=== PATIENT | female | born 1960 | race Caucasian/White ===

== ENCOUNTER 2017-07-23 07:56 | Inpatient (IN) | payer OTHER ==
[2017-07-23] VITALS (7 sets, daily range): BP systolic 97–142; BP diastolic 46–85
[~2017-07-23] VITALS: Ht 162.6 cm; Wt 95.3 kg
[~2017-07-23 07:56] MED LIST: ALLERGY RELIEF10 MG PO; ASPIR 8181 MG PO; ATIVAN1 MG PO; BENTYL 20 MG TA20 M1 PO; BUSPIRONE HCL10 MG PO; CLONAZEPAM; FLEXERIL PO; GLUCOPHAGE XR500 MG PO; HYDROXYZINE HCL25 M1 PO; LEVAQUIN 500 M500 M1 PO; LEVOTHROID; LISINOPRIL5 MG PO; MIGRANOW KIT50 MG PO; NAPROSYN500 MG PO; NEURONTIN 300300 M1 PO; NORCO 10-325 T1 EACH PO; OMEPRAZOLE40 MG PO; ONGLYZA5 MG PO; PERCOCET 5-3251 EACH PO; PRISTIQ50 MG PO; SUDAFED 12 HOU120 MG PO; SYNTHROID150 MCG PO; TESSALON PERLE100 M1 PO; VERAPAMIL ER180 M1 PO; WELLBUTRIN SR150 MG PO
[2017-07-23] MEDS ORDERED: OCUFLOX5 ML OPHTHALMIC (08:05)
[2017-07-23] MEDS ORDERED: ALBUTEROL2.5 MG/0.5 INH (08:05)
[2017-07-23 08:36] LABS: HEMATOCRIT 33.4 % (37.0-47.0); HEMOGLOBIN 10.9 gm/dL (12.0-15.0); MCH 26.7 pg (26.0-34.0); MCHC 32.7 g/dL (28.0-37.0); MCV 81.5 fL (80.0-100.0); MPV 9.3 fl. (7.2-11.1); NUCLEATED RBCS 0 /100WBC; PLATELET COUNT* 390 thou/uL (150-400); RBC 4.09 mil/uL (4.20-5.00); RDW-CV 16.6 % (10.5-14.5); WBC 22.3 thou/uL (4.0-11.0)
[2017-07-23 08:45] LABS: ANION GAP 9 mmol/L (7-16); BUN 25 mg/dL (7-18); CALCIUM 8.5 mg/dL (8.5-10.1); CHLORIDE 98 mmol/L (98-107); CO2 26 mmol/L (21-32); CREATININE 2.4 mg/dL (0.6-1.3); GLUCOSE 127 mg/dL (70-99); POTASSIUM 4.8 mmol/L (3.5-5.1); SODIUM 133 mmol/L (136-145)
[2017-07-23 08:53] LABS: ALBUMIN 3.2 g/dL (3.4-5.0); ALKALINE PHOSPHATASE 60 U/L (46-116); LIPASE 177 U/L (73-393); SGOT 17 U/L (15-37); SGPT 18 U/L (30-65); TOTAL BILIRUBIN 0.5 mg/dL (<0.1-1.0); TOTAL PROTEIN 6.9 g/dL (6.4-8.2); TROPONIN-I LEVEL <0.06 ng/mL (<0.06)
[2017-07-23 09:17] LABS: ABSOLUTE LYMPHOCYTES 3.1 thou/uL (0.8-5.3); ABSOLUTE MONOCYTES 0.7 thou/uL (0.0-1.2); ABSOLUTE NEUTROPHILS 18.5 thou/uL (1.6-8.1); PLATELET ESTIMATE ADEQUATE
[2017-07-23 09:38] LABS: INFLUENZA A ANTIGEN None Detected (None Detect); INFLUENZA B ANTIGEN None Detected (None Detect)
[2017-07-23 09:47] LABS: URINE BILIRUBIN NEGATIVE (Negative); URINE BLOOD TRACE (Negative); URINE CLARITY CLEAR; URINE COLOR YELLOW; URINE GLUCOSE-RANDOM NEGATIVE (Negative); URINE KETONES NEGATIVE (Negative); URINE LEUKOCYTES-REFLEX NEGATIVE (Negative); URINE NITRITE-REFLEX NEGATIVE (Negative); URINE PROTEIN NEGATIVE (Negative); URINE SPECIFIC GRAVITY <= 1.005 (1.005-1.030); URINE UROBILINOGEN 0.2 E.U./dl (0.2-1.0)
[2017-07-23 14:31] LABS: CREATININE 2.3 mg/dL (0.6-1.3); MAGNESIUM 1.6 mg/dL (1.8-2.4)
--- NOTE | 2017-07-23 16:00 | EKG ---
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 : 1960 Requested By: Mj Baez Order Number: [id number] MD: Mason Johnson Measurements Intervals [place] Rate: 121 P: 47 WA: 130 QRS: -20 QRSD: 77 T: 51 QT: 321 QTc: 456 Interpretive Statements Sinus tachycardia Borderline left axis deviation Compared to ECG 05/01/2017 16:02:13 Sinus rhythm no longer present Electronically Signed On 07-23-2017 16:00:00 EATING DISORDER PSYCHOLOGIST by Mason Johnson [email or web address] <ELECTRONICALLY SIGNED> By: Mason Johnson MD, [facility] 07/23/17 [facility] 4 4 Mason Johnson MD, [facility] /EPI
[2017-07-24] VITALS (9 sets, daily range): BP systolic 67–103; BP diastolic 34–58
[2017-07-24 05:33] LABS: ABSOLUTE BASOPHILS 0.1 thou/uL (0.0-0.2); ABSOLUTE EOSINOPHILS 0.4 thou/uL (0.0-0.7); ABSOLUTE LYMPHOCYTES 1.5 thou/uL (0.8-5.3); ABSOLUTE MONOCYTES 1.1 thou/uL (0.0-1.2); ABSOLUTE NEUTROPHILS 8.9 thou/uL (1.6-8.1); BASOPHILS 0.6 %; HEMATOCRIT 25.6 % (37.0-47.0); LYMPHOCYTES 12.5 %; MCH 26.9 pg (26.0-34.0); MCV 83.9 fL (80.0-100.0); MONOCYTES 9.3 %; MPV 9.5 fl. (7.2-11.1); NUCLEATED RBCS 0 /100WBC; POLYS 74.6 %; RBC 3.05 mil/uL (4.20-5.00); RDW-CV 16.5 % (10.5-14.5); WBC 11.9 thou/uL (4.0-11.0)
[2017-07-24 05:56] LABS: HEMOGLOBIN 8.2 gm/dL (12.0-15.0); PLATELET COUNT* 269 thou/uL (150-400)
[2017-07-24 07:19] LABS: ALBUMIN 2.2 g/dL (3.4-5.0); CALCIUM 7.3 mg/dL (8.5-10.1); CREATININE 2.6 mg/dL (0.6-1.3); TOTAL BILIRUBIN 0.2 mg/dL (<0.1-1.0); TOTAL PROTEIN 5.2 g/dL (6.4-8.2)
[2017-07-24 07:20] LABS: POTASSIUM 5.4 mmol/L (3.5-5.1)
[2017-07-25] VITALS: BP 111/60
[2017-07-25 04:04] VITALS: BP 130/79
[2017-07-25 05:32] LABS: HEMATOCRIT 26.8 % (37.0-47.0); HEMOGLOBIN 8.4 gm/dL (12.0-15.0); MCH 26.6 pg (26.0-34.0); MCHC 31.4 g/dL (28.0-37.0); MCV 84.7 fL (80.0-100.0); MPV 9.8 fl. (7.2-11.1); NUCLEATED RBCS 0 /100WBC; PLATELET COUNT* 297 thou/uL (150-400); RBC 3.16 mil/uL (4.20-5.00); RDW-CV 17.2 % (10.5-14.5); WBC 16.7 thou/uL (4.0-11.0)
[2017-07-25 05:53] LABS: ALBUMIN 2.6 g/dL (3.4-5.0); CALCIUM 8.2 mg/dL (8.5-10.1); CREATININE 2.1 mg/dL (0.6-1.3); MAGNESIUM 1.9 mg/dL (1.8-2.4); TOTAL BILIRUBIN 0.3 mg/dL (<0.1-1.0); TOTAL PROTEIN 6.2 g/dL (6.4-8.2)
[2017-07-25 06:00] LABS: ABSOLUTE LYMPHOCYTES 0.7 thou/uL (0.8-5.3); ABSOLUTE MONOCYTES 0.5 thou/uL (0.0-1.2); ABSOLUTE NEUTROPHILS 15.5 thou/uL (1.6-8.1); ANISOCYTOSIS 1+; PLATELET ESTIMATE ADEQUATE; POIKILOCYTOSIS 1+
[2017-07-25 09:49] VITALS: BP 131/77
[2017-07-25 11:55] VITALS: BP 128/63
[2017-07-25 18:35] VITALS: BP 112/40
[2017-07-25 21:00] VITALS: BP 99/54
[2017-07-26 03:55] LABS: ABSOLUTE BASOPHILS 0.1 thou/uL (0.0-0.2); ABSOLUTE EOSINOPHILS 0.3 thou/uL (0.0-0.7); ABSOLUTE LYMPHOCYTES 1.9 thou/uL (0.8-5.3); ABSOLUTE MONOCYTES 0.8 thou/uL (0.0-1.2); ABSOLUTE NEUTROPHILS 9.8 thou/uL (1.6-8.1); BASOPHILS 0.6 %; EOSINOPHILS 2.1 %; HEMATOCRIT 24.2 % (37.0-47.0); HEMOGLOBIN 7.6 gm/dL (12.0-15.0); LYMPHOCYTES 14.9 %; MCH 26.2 pg (26.0-34.0); MCHC 31.5 g/dL (28.0-37.0); MCV 83.3 fL (80.0-100.0); MONOCYTES 6.1 %; MPV 9.6 fl. (7.2-11.1); NUCLEATED RBCS 0 /100WBC; PLATELET COUNT* 296 thou/uL (150-400); POLYS 76.3 %; RDW-CV 16.8 % (10.5-14.5); WBC 12.9 thou/uL (4.0-11.0)
[2017-07-26 04:48] LABS: ALBUMIN 2.4 g/dL (3.4-5.0); CALCIUM 7.7 mg/dL (8.5-10.1); CREATININE 1.9 mg/dL (0.6-1.3); POTASSIUM 5.2 mmol/L (3.5-5.1); TOTAL BILIRUBIN 0.3 mg/dL (<0.1-1.0); TOTAL PROTEIN 5.6 g/dL (6.4-8.2)
[2017-07-26 07:49] VITALS: BP 139/64
[2017-07-26] MEDS ORDERED: BENTYL 20 MG TA20 M1 PO (09:44)
[2017-07-26] MEDS ORDERED: HYDROXYZINE HCL25 M1 PO (09:48)
[2017-07-26] MEDS ORDERED: LISINOPRIL5 MG PO (09:48)
[2017-07-26] MEDS ORDERED: NEURONTIN 300300 M1 PO (09:48)
[2017-07-26] MEDS ORDERED: WELLBUTRIN SR150 MG PO (09:48)
[2017-07-26] MEDS ORDERED: VERAPAMIL ER180 MG PO (09:48)
[2017-07-26] MEDS ORDERED: BUSPIRONE HCL5 MG PO (09:48)
[2017-07-26] MEDS ORDERED: ATIVAN1 MG PO ×2 (09:49→10:49)
[2017-07-26 10:41] VITALS: BP 139/64
[2017-07-26] MEDS ORDERED: LEVAQUIN 750 M750 MG PO (10:47)
[2017-07-26] MEDS ORDERED: PREDNISONE 10 M10 MG PO (10:48)
[2017-07-26] MEDS ORDERED: HYDROCODONE-AP1 EAC6 PO (10:49)
[2017-07-26] MEDS ORDERED: ALBUTEROL2.5 MG/0.5 INH (11:49)
--- NOTE | 2017-10-02 13:16 | OP ---
[address] [address] OPERATIVE REPORT Name: PRINCE JACOBO Room: [address]R#: [id number] Admission: 07/23/17 Attend Phys: Sabrina Moncada Discharge: 07/26/17 Date of : 58 Report #: [id number] THIS REPORT FOR: //name// CC: [facility] physician/PCP Abelardo Whelan DATE OF SERVICE: 07/24/2017 PREOPERATIVE DIAGNOSES: Left ureteral stone with fever. POSTOPERATIVE DIAGNOSES: Left ureteral stone with fever. PROCEDURE: Panendoscopy and cystoscopy, left retrograde pyelogram, left double-J stent placement, complex secondary to fever and urinary infection. INDICATIONS: This is a 56-year-old white female with a history of COPD, came into the Emergency Room with left flank pain. CT showed a left UPJ stone. She ran low grade fevers. She had elevated white count. She has significant COPD. She was placed on antibiotics and then scheduled for ureteral stent placement. She presents now. She understands risks of bleeding, infection, need for another procedure. She also understands that we would not get the stone out that due to the fevers and the extravasation of urine she has had, we will just place a stent. She will need eventual other treatment for her stone, most likely ureteroscopy. DESCRIPTION OF PROCEDURE: Informed consent was obtained, the patient was sterilely prepped and draped in dorsolithotomy position, gave appropriate antibiotics. Cystoscopy was carried out. No abnormalities were seen in the bladder. Left retrograde pyelogram was performed which showed a left ureteropelvic junction stone obstructing the proximal left ureter. A 6 x 28 contour stent was then placed showing a good curl in the kidney and good curl in the bladder. There was a significant hydronephrotic drip of purulent looking material. The patient tolerated this well and was taken to recovery room in good condition. The plan will be for the patient to recover from her current hospital stay and then will be seen in the office in 7-10 days and then plans will be made for eventual treatment of her stone. <ELECTRONICALLY SIGNED> By: Hakeem Quevedo MD 10/02/17 1316 0821 [id number] Quevedo MD /nt
[2017-10-11] MEDS ORDERED: ONDANSETRON HCL4 M2 PO (12:48)
[2017-10-11] MEDS ORDERED: LEVSIN0.125 MG SUBLING (15:56)
[2017-10-11] MEDS ORDERED: PHENAZOPYRIDIN200 M2 PO (15:57)
== END 2017-07-26 11:45 | disposition home or self-care (01) | DRG 871 ==
LOC: M.ERS 07:56 → M.TBA-ER 10:11 → M.2W 10:11 → M.3W 07-25 18:41
PROVIDERS: Emergency Medicine Emergency Medical Services; ADMIT Internal Medicine
DX: A41.9 Sepsis, unspecified organism (principal); N17.0 Acute kidney failure with tubular necrosis; E43 Unspecified severe protein-calorie malnutrition; J44.1 Chronic obstructive pulmonary disease with (acute) exacerbation; N13.1 Hydronephrosis with ureteral stricture, not elsewhere classified; E11.9 Type 2 diabetes mellitus without complications; E03.9 Hypothyroidism, unspecified; F17.210 Nicotine dependence, cigarettes, uncomplicated; K76.0 Fatty (change of) liver, not elsewhere classified; I10 Essential (primary) hypertension; Z90.49 Acquired absence of other specified parts of digestive tract; Z79.899 Other long term (current) drug therapy; Z88.0 Allergy status to penicillin; Z68.36 Body mass index [BMI] 36.0-36.9, adult

== ENCOUNTER → 2017-10-11 | Day surgery (SDC) | payer OTHER ==
[~2017-10-11] MED LIST changes: +ALBUTEROL2.5 MG/0.5 INH; +BUSPIRONE HCL5 MG PO; +HYDROCODONE-AP1 EAC6 PO; +LEVAQUIN 750 M750 MG PO; +LEVSIN0.125 MG SUBLING; +OCUFLOX5 ML OPHTHALMIC; +ONDANSETRON HCL4 M2 PO; +PHENAZOPYRIDIN200 M2 PO; +PREDNISONE 10 M10 MG PO; +VERAPAMIL ER180 MG PO
--- NOTE | 2017-10-19 16:01 | OP ---
[facility] [address] [place] [address] OPERATIVE REPORT Name: PRINCE JACOBO Room: [facility]#: [id number] Admission: 10/11/17 Attend Phys: Citlalli Contreras, Discharge: Date of : 58 Report #: [id number] THIS REPORT FOR: //name// CC: [facility] Citlalli Contreras [facility] physician/PCP DATE OF SERVICE: 10/11/2017 PREOPERATIVE DIAGNOSIS: Left proximal ureteral stone. POSTOPERATIVE DIAGNOSIS: Left lower pole renal stone. PROCEDURE: Cystourethroscopy, left ureteral stone removal, left retrograde pyelogram, left ureteroscopy, laser lithotripsy, basket extraction of stone and left ureteral stent replacement (6-Czech x 26 cm). SURGEON: Citlalli Contreras M.D. ANESTHESIA: General. ESTIMATED BLOOD LOSS: None. COMPLICATIONS: None. SPECIMEN: Stone. INDICATIONS: The patient is a 56-year-old female who had a stent placed on the left side for a mm left proximal ureteral stone back in July. She was infected at that time. She has completed antibiotic therapy. She has had several other health issues and conflicts postponing her followup to see us and finally came back to see me in clinic in September to set up a stone retrieval surgery. Risks of procedure were discussed including but not limited to infection, bleeding, injury to the urethra, bladder, ureter, need for secondary procedures, stent pain, cardiopulmonary complications. Also discussed the extreme importance of timeliness of removing her stent so that she does not have complications from the stent. She does voice understanding of all this and wishes to proceed. DESCRIPTION OF PROCEDURE: After informed consent was obtained, the patient was taken back to the operating suite and placed supine. After induction of general anesthesia, she was placed in dorsal lithotomy position, genitalia prepped and draped in standard fashion. Rigid cystoscopy was performed. Pancystoscopy revealed the bladder mucosa to be normal. There were no tumors or lesions. The left ureteral stent curl was seen protruding from the left UO and was moderately encrusted. This was externalized at the meatus. Attempted [place] [id number] OPERATIVE REPORT Name: PRINCE JACOBO Room: [facility]#: [id number] Admission: 10/11/17 Attend Phys: Citlalli Contreras, Discharge: Date of : 58 Report #: [id number] wire through the stent, but the proximal end of the stent was likely encrusted as the wire would not go through. Therefore, the stent was removed in its entirety and the scope was reintroduced and a sensor wire was threaded up into the kidney without difficulty. The stone appeared on x-ray to have been pushed back into the lower pole, probably when her stent was originally placed. Retrograde was performed with a dual lumen catheter and this revealed normal ureter and collecting system with a filling defect in the lower pole consistent with the known stone. A second wire was placed. An 04/23 ureteral access sheath was threaded over the wire to the level of the proximal ureter. The sensor wire remained in place as a safety wire. Flexible ureteroscope was advanced up into the kidney. The stone was encountered in the left lower pole and it appeared consistent with a monohydrate stone. The angle was somewhat difficult to laser at. Therefore, this was basketed with 0 tip nitinol basket and deposited up in the upper pole to make it easier to laser. A 200 micron holmium laser fiber was used to laser the stone into small fragments. These were all basketed with a 0 tip nitinol basket and removed. Anything remaining was dust-like in size and should be passable. It was quite a hard stone. The contrast was then again injected to delineate the collecting system for stent placement. There was no hydronephrosis. The scope was backed out along with the sheath and there was no injury from the sheath. The wire was backloaded through the cystoscope and a 6-Czech x 26-cm double-J stent was threaded over the wire. Good curl was seen in the upper pole and good curl was seen within the bladder under direct visualization. The bladder was then drained, scope was removed. A 5 mL of lidocaine jelly were placed per urethra for local anesthesia and a 60 mg B and O suppository was placed per rectum for postoperative discomfort. She was awoken, extubated, and taken to recovery in satisfactory condition. She will be dismissed home with followup with me in a week to remove her stent. <ELECTRONICALLY SIGNED> By: Citlalli Contreras MD 10/19/17 1601 1538 [id number] Contreras MD /nt
[2017-10-19 17:08] LABS: STONE CA OXALATE MONOHYDRATE 83 % (()); STONE COLOR Brown (()); STONE COMMENT Comment: (()); STONE WEIGHT 63.2 mg (())
== END | disposition home or self-care (01) ==
LOC: M.SUR 08:51
PROVIDERS: Urology
DX: N20.0 Calculus of kidney (principal); Z98.890 Other specified postprocedural states; Z88.0 Allergy status to penicillin; Z79.82 Long term (current) use of aspirin; Z79.899 Other long term (current) drug therapy; Z79.891 Long term (current) use of opiate analgesic

== ENCOUNTER → 2018-09-19 | Outpatient (CLI) | payer OTHER ==
--- NOTE | 2018-09-19 18:25 | EKG ---
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
== END ==
LOC: M.CRD 11:37
DX: Z01.818 Encounter for other preprocedural examination (principal); N20.0 Calculus of kidney